=== PATIENT | female | born 1945 | race Caucasian/White ===

== ENCOUNTER 2017-03-14 16:36 | Emergency (ER) | payer MEDICARE, BC ==
[~2017-03-14] VITALS: Ht 172.7 cm; Wt 82.9 kg
[2017-03-14 16:39] VITALS: BP 135/79
[2017-03-14] MEDS ORDERED: PROPARACAINE OPHTH 0.5%, 15ML ONE (16:53)
[2017-03-14] MEDS ORDERED: FLUORESCEIN OPHTHALMIC 1 MG STRIP ONE (16:53)
[2017-03-14] MEDS ORDERED: OMEP40CA6 PO (16:55)
[2017-03-14] MEDS ORDERED: EYE WASH SOLUTION 120ML ONE (17:16)
== END 2017-03-14 17:46 | disposition home or self-care (01) ==
LOC: ED 17:20
DX: S05.02XA Injury of conjunctiva and corneal abrasion without foreign body, left eye, initial encounter (principal); H10.212 Acute toxic conjunctivitis, left eye; T50.905A Adverse effect of unspecified drugs, medicaments and biological substances, initial encounter; X58.XXXA Exposure to other specified factors, initial encounter; Y93.89 Activity, other specified; Y92.89 Other specified places as the place of occurrence of the external cause; Y99.9 Unspecified external cause status
CPT/HCPCS: 99283

== ENCOUNTER 2018-10-09 09:51 | Emergency (ER) | payer BC, MEDICARE ==
[~2018-10-09] VITALS: Ht 170.2 cm; Wt 87.8 kg
[~2018-10-09 09:51] MED LIST: OMEP40CA6 PO
[2018-10-09 10:02] VITALS: BP 140/77
[2018-10-09] MEDS ORDERED: ACETAMINOPHEN 500 MG TABLET PO ONE (12:00)
== END 2018-10-09 12:23 | disposition home or self-care (01) ==
LOC: ED 11:17
DX: H43.811 Vitreous degeneration, right eye (principal)
CPT/HCPCS: 99282; 99283

== ENCOUNTER 2021-07-18 13:53 | Outpatient (CLI) | payer MEDICARE, BC ==
[~2021-07-18 13:53] MED LIST changes: -OMEP40CA6 PO; +OMEP40CA8 PO
[2021-07-18] MEDS ORDERED: OMNIPAQUE 350 MG/ML, 100ML BOTTLE ONE (16:02)
== END 2021-07-18 23:59 | disposition home or self-care (01) ==
LOC: RAD 13:53
PROVIDERS: ATTEND Otolaryngology
DX: K44.9 Diaphragmatic hernia without obstruction or gangrene (principal); K57.30 Diverticulosis of large intestine without perforation or abscess without bleeding; M51.37 Other intervertebral disc degeneration, lumbosacral region; K57.32 Diverticulitis of large intestine without perforation or abscess without bleeding
CPT/HCPCS: 74177; Q9967; 36415; 82565

== ENCOUNTER 2021-07-18 14:46 | Outpatient (CLI) | payer MEDICARE, BC | END 2021-07-18 23:59 | disposition home or self-care (01) | LOC: LAB 14:46 | PROVIDERS: ATTEND Radiology Diagnostic Radiology | DX: E11.9 Type 2 diabetes mellitus without complications (principal); Z77.098 Contact with and (suspected) exposure to other hazardous, chiefly nonmedicinal, chemicals | CPT/HCPCS: 36415; 82565 ==

== ENCOUNTER 2021-07-23 14:22 | Emergency (ER) | payer BC, MEDICARE ==
[~2021-07-23] VITALS: Ht 170.2 cm; Wt 82.7 kg
[2021-07-23 14:39] VITALS: BP 138/77
[2021-07-23 15:27] LABS: BASOPHILS % (AUTO) 1 % (0-1); EOSINOPHILS % (AUTO) 2 % (1-7); LYMPHOCYTES % (AUTO) 36 % (22-44); MEAN CORPUSCULAR HEMOGLOBIN 30.6 pg (27.0-34.8); MEAN CORPUSCULAR HGB CONC 33.6 g/dL (32.4-35.8); MONOCYTES % (AUTO) 5 % (2-9); NEUTROPHILS % (AUTO) 57 % (42-75); PLATELET COUNT 283 x10^3/uL (130-400); RED BLOOD COUNT 4.64 x10^6/uL (3.82-5.3); RED CELL DISTRIBUTION WIDTH 13.3 % (9.6-15.2)
[2021-07-23 15:37] LABS: ALBUMIN 3.8 g/dL (3.4-5.0); ANION GAP 4 mmol/L (5-15); CALCIUM 9.2 mg/dL (8.5-10.1); CHLORIDE 105 mmol/L (98-107); CREATININE 0.91 mg/dL (0.55-1.02)
--- NOTE | 2021-07-23 20:11 | NUR ---
NIL for room
--- NOTE | 2021-07-23 20:30 | NUR ---
NIL for room
--- NOTE | 2021-07-23 20:49 | NUR ---
Patient signed out AMA with registration.
== END 2021-07-23 20:50 | disposition left against medical advice (07) ==
LOC: ED 15:00
DX: R10.32 Left lower quadrant pain (principal)
CPT/HCPCS: 36415; 76830; 80048; 82040; 85025; 99284